=== PATIENT | male | born 1990 | race American Indian/Alaskan Native ===

== ENCOUNTER 2018-11-07 05:37 | Emergency (ER) | payer SELFPAY ==
[2018-11-07] MEDS ORDERED: ZOFRAN ONE (05:55)
[2018-11-07] MEDS ORDERED: MORPHINE ONE (05:55)
[2018-11-07] MEDS ORDERED: TORADOL ONE (05:55)
[2018-11-07] MEDS ORDERED: MORPHINE IV ONE (06:00)
[2018-11-07] MEDS ORDERED: TORADOL IV ONE (06:00)
[2018-11-07] MEDS ORDERED: ZOFRAN IV ONE (06:00)
[2018-11-07] MEDS ORDERED: SOLU-Medrol IV ONE (06:50)
[2018-11-07] MEDS ORDERED: VALIUM IV ONE (06:51)
--- NOTE | 2018-11-07 06:56 | Emergency Department Report ---
ED General Adult HPI - General Chief complaint: Abdominal Pain Stated complaint: BACK PAIN Time Seen by Provider: 11/07/18 06:31 Source: EMS Mode of arrival: Stretcher Limitations: No Limitations - History of Present Illness Initial comments: Patient presents to the emergency department with a chief complaint of left- sided back pain that started at approximately 2:45 AM. 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 Patient states the pain feels like a pulling sensation and at times he gets a shooting pain into his stomach but it goes away. Patient states any type of movement triggers a catch in his back. Patient denies any true radiation of his back pain. -: Sudden Location: back Severity scale (0 -10): 10 Quality: other (spasm) Consistency: constant Improves with: rest Worsens with: movement Associated Symptoms: denies other symptoms Treatments Prior to Arrival: none - Related Data Previous Rx's Medication Instructions Recorded Last Taken Type Cyclobenzaprine HCl [Flexeril 5 MG 5 mg PO BID PRN #10 tab 11/07/18 Unknown Rx TAB] Ketorolac [Toradol] 10 mg PO Q6H PRN #12 tablet 11/07/18 Unknown Rx Allergies Allergy/AdvReac Type Severity Reaction Status Date / Time No Known Allergies Allergy Unverified 11/07/18 05:57 ED Review of Systems ROS: Stated complaint: BACK PAIN Other details as noted in HPI Comment: All other systems reviewed and negative Constitutional: denies: chills, fever Eyes: denies: eye pain, eye discharge, vision change ENT: denies: ear pain, throat pain Respiratory: denies: cough, shortness of breath, wheezing Cardiovascular: denies: chest pain, palpitations Endocrine: no symptoms reported Gastrointestinal: denies: abdominal pain, nausea, diarrhea Genitourinary: denies: urgency, dysuria Musculoskeletal: back pain. denies: joint swelling, arthralgia Skin: denies: rash, lesions Neurological: denies: headache, weakness, paresthesias Psychiatric: denies: anxiety, depression Hematological/Lymphatic: denies: easy bleeding, easy bruising ED Past Medical Hx - Past Medical History Previous Medical History?: No - Surgical History Past Surgical History?: No - Social History Smoking Status: Current Every Day Smoker Substance Use Type: None - Medications Home Medications: Home Medications Medication Instructions Recorded Confirmed Last Taken Type Cyclobenzaprine HCl [Flexeril 5 MG 5 mg PO BID PRN #10 tab 11/07/18 Unknown Rx TAB] Ketorolac [Toradol] 10 mg PO Q6H PRN #12 tablet 11/07/18 Unknown Rx ED Physical Exam - General Limitations: No Limitations General appearance: alert, in no apparent distress - Head Head exam: Present: atraumatic, normocephalic - Eye Eye exam: Present: normal appearance, PERRL, EOMI - ENT ENT exam: Present: mucous membranes moist - Neck Neck exam: Present: normal inspection - Respiratory Respiratory exam: Present: normal lung sounds bilaterally. Absent: respiratory distress, wheezes, rales - Cardiovascular Cardiovascular Exam: Present: regular rate, normal rhythm. Absent: systolic murmur, diastolic murmur, rubs, gallop - GI/Abdominal GI/Abdominal exam: Present: soft, normal bowel sounds - Rectal Rectal exam: Present: deferred - Extremities Exam Extremities exam: Present: other (patient has tenderness to palpation in the parathoracic and paralumbar region on the exam specifically on the left side with spasms present) - Back Exam Back exam: Present: normal inspection - Neurological Exam Neurological exam: Present: alert, oriented X3 - Psychiatric Psychiatric exam: Present: normal affect, normal mood - Skin Skin exam: Present: warm, dry, intact, normal color. Absent: rash ED Course Vital Signs 11/07/18 11/07/18 11/07/18 05:48 05:51 06:00 Temperature 98.7 F Pulse Rate 81 75 57 L Respiratory 16 22 15 Rate Blood Pressure 119/63 Blood Pressure 119/63 [Left] O2 Sat by Pulse 98 98 100 Oximetry 11/07/18 11/07/18 11/07/18 06:02 06:16 06:30 Temperature Pulse Rate 52 L 52 L Respiratory 18 16 14 Rate Blood Pressure 120/76 122/72 Blood Pressure [Left] O2 Sat by Pulse 100 100 Oximetry 11/07/18 11/07/18 11/07/18 06:45 07:00 07:15 Temperature Pulse Rate 56 L 55 L 54 L Respiratory 11 L 16 23 Rate Blood Pressure 128/75 128/75 123/75 Blood Pressure [Left] O2 Sat by Pulse 100 100 100 Oximetry 11/07/18 11/07/1811/07/19 07:30 07:45 08:00 Temperature Pulse Rate 54 L 61 62 Respiratory 17 14 13 Rate Blood Pressure 123/75 120/81 116/69 Blood Pressure [Left] O2 Sat by Pulse 100 98 96 Oximetry 11/07/18 11/07/18 11/07/18 08:15 08:31 08:45 Temperature Pulse Rate 52 L 54 L 52 L Respiratory 11 L 12 15 Rate Blood Pressure 112/60 110/66 122/71 Blood Pressure [Left] O2 Sat by Pulse 100 98 100 Oximetry ED Medical Decision Making - Lab Data Result diagrams: 11/07/18 06:08 11/07/18 06:08 Lab Results 11/07/18 11/07/18 Range/Units 06:08 06:08 WBC 10.2 (4.5-11.0) K/mm3 RBC 2.88 L (3.65-5.03) M/mm3 Hgb 10.2 L (11.8-15.2) gm/dl Hct 29.0 L (35.5-45.6) % MCV 101 H (84-94) fl MCH 36 H (28-32) pg MCHC 35 H (32-34) % RDW 15.8 H (13.2-15.2) % Plt Count 307 (140-440) K/mm3 Lymph % (Auto) Manager Of Compensation [place] % (Auto) Manager Of Compensation Eos % (Auto) Manager Of Compensation Baso % (Auto) Manager Of Compensation Lymph # Manager Of Compensation [place] # Manager Of Compensation Eos # Manager Of Compensation Baso # Manager Of Compensation Add Manual Diff Complete Total Counted 100 Seg Neutrophils % Manager Of Compensation Seg Neuts % (Manual) 59.0 (40.0-70.0) % Band Neutrophils % 4.0 % Lymphocytes % (Manual) 20.0 (13.4-35.0) % Reactive Lymphs % (Man) 1.0 % Monocytes % (Manual) 10.0 H (0.0-7.3) % Eosinophils % (Manual) 0 (0.0-4.3) % Basophils % (Manual) 1.0 (0.0-1.8) % Metamyelocytes % 1.0 % Myelocytes % 4.0 % Promyelocytes % 0 % Blast Cells % 0 % Nucleated RBC % 4.0 H (0.0-0.9) % Seg Neutrophils # Manager Of Compensation Seg Neutrophils # Man 0.0 L (1.8-7.7) K/mm3 Band Neutrophils # 0.0 K/mm3 Lymphocytes # (Manual) 0.0 L (1.2-5.4) K/mm3 Abs React Lymphs (Man) 0.0 K/mm3 Monocytes # (Manual) 0.0 (0.0-0.8) K/mm3 Eosinophils # (Manual) 0.0 (0.0-0.4) K/mm3 Basophils # (Manual) 0.0 (0.0-0.1) K/mm3 Metamyelocytes # 0.0 K/mm3 Myelocytes # 0.0 K/mm3 Promyelocytes # 0.0 K/mm3 Blast Cells # 0.0 K/mm3 WBC Morphology Not Reportable Hypersegmented Neuts Not Reportable Hyposegmented Neuts Not Reportable Hypogranular Neuts Not Reportable Smudge Cells Not Reportable Toxic Granulation Not Reportable Toxic Vacuolation Not Reportable Dohle Bodies Not Reportable Pelger-Huet Anomaly Not Reportable Lelo Rods Not Reportable Platelet Estimate Consistent w auto Clumped Platelets Not Reportable Plt Clumps, EDTA Not Reportable Large Platelets Not Reportable Giant Platelets Not Reportable Platelet Satelliting Not Reportable Plt Morphology Comment Not Reportable RBC Morphology Not Reportable Dimorphic RBCs Not Reportable Polychromasia Few Hypochromasia Not Reportable Poikilocytosis Not Reportable Anisocytosis 1+ Microcytosis Not Reportable Macrocytosis 1+ Spherocytes Not Reportable Pappenheimer Bodies Not Reportable Sickle Cells Not Reportable Target Cells 2+ Tear Drop Cells Not Reportable Ovalocytes Not Reportable Helmet Cells Not Reportable Loco-[place] Bodies Not Reportable [place] Rings Not Reportable [place] Cells Not Reportable Bite Cells Not Reportable Crenated Cell Not Reportable Elliptocytes Not Reportable Acanthocytes (Spur) Not Reportable Rouleaux Not Reportable Hemoglobin C Crystals Not Reportable Schistocytes Not Reportable Malaria parasites Not Reportable Jass Bodies Not Reportable Hem Pathologist Commnt No Sodium 144 (137-145) mmol/L Potassium 3.6 (3.6-5.0) mmol/L Chloride 104.7 (98-107) mmol/L Carbon Dioxide 23 (22-30) mmol/L Anion Gap 20 mmol/L BUN 14 (9-20) mg/dL Creatinine 0.8 (0.8-1.5) mg/dL Estimated GFR > 60 ml/min BUN/Creatinine Ratio 18 % Glucose 96 (75-100) mg/dL Calcium 9.7 (8.4-10.2) mg/dL Total Bilirubin 1.10 (0.1-1.2) mg/dL AST 31 (5-40) units/L ALT 10 (7-56) units/L Alkaline Phosphatase 99 (35-129) units/L Total Protein 7.8 (6.3-8.2) g/dL Albumin 4.7 (3.9-5) g/dL Albumin/Globulin Ratio 1.5 % - Radiology Data Radiology results: report reviewed - Medical Decision Making After treatment of the patient's pain initially he didn't complains of the pain moving into his left flank and into his groin. The lung with radiation of pain and complains of nausea that has become severe. Thus a CT of abdomen and pelvis was ordered CT does not show a nephrolithiasis Results discussed with patient Critical care attestation.: If time is entered above; I have spent that time in minutes in the direct care of this critically ill patient, excluding procedure time. ED Disposition Clinical Impression: Back pain, Flank pain Disposition: DC- TO HOME OR SELFCARE Is pt being admited?: No Does the pt Need Aspirin: No Condition: Stable Instructions: Flank Pain (ED), Acute Low Back Pain (ED), Low Back Strain (ED) Additional Instructions: return if worse Referrals: PRIMARY CARE, [Primary Care Provider] - 3-5 Days [facility] [Provider Group] - 3-5 Days [facility] [Provider Group] - 3-5 Days Time of Disposition: 09:24
[2018-11-07 07:38] LABS: Hemoglobin 10.2 gm/dl (11.8-15.2); Mean Corpuscular HGB Conc 35 % (32-34); Mean Corpuscular Volume 101 fl (84-94); Platelet Count 307 K/mm3 (140-440); Red Blood Count 2.88 M/mm3 (3.65-5.03); Red Cell Distribution Width 15.8 % (13.2-15.2)
[2018-11-07 07:50] LABS: Alanine Aminotransferase 10 units/L (7-56); Albumin 4.7 g/dL (3.9-5); BUN/Creatinine Ratio 18; Blood Urea Nitrogen 14 mg/dL (9-20); Calcium 9.7 mg/dL (8.4-10.2); Hemolysis Index 23
[2018-11-07 09:08] LABS: Anisocytosis 1+; Eosinophils % (Manual) 0 % (0.0-4.3); Macrocytosis 1+; Platelet Estimate Consistent w Auto; Target Cells 2+; Total Cells Counted 100
[2018-11-07] MEDS ORDERED: NORCO 10/325 PO ONE (09:14)
--- NOTE | 2018-11-07 09:16 | Cat Scan Report ---
PROCEDURE: CT ABDOMEN PELVIS WO CON TECHNIQUE: Noncontrast CT of the abdomen and pelvis was performed. No IV or oral contrast administere d. Axial images and coronal and sagittal reformatted images were obtained. HISTORY: flank pain COMPARISON: None FINDINGS: There is some minimal dependent atelectasis at the right lung base. There is trace right pleural flui d. There is no nephrolithiasis, hydronephrosis or other evidence for acute obstructive uropathy. Within the limitations of a noncontrast exam, the visualized liver, spleen, pancreas, adrenal glands and kidneys demonstrate no significant abnormality. The stomach is distended with food material. There is no abdominal aortic aneurysm. There is no evidence for intestinal obstruction. The appendix is not visualized. There is no free intraperitoneal air. There is no abnormal fluid collection seen. Bladder is unremarkable. There is no abnormal pelvic fluid collection or mass seen. IMPRESSION: Stomach is distended with food. There is no nephrolithiasis, hydronephrosis or other evidence for acute obstructive uropathy. Minimal right basilar atelectasis and trace pleural fluid. This document is electronically signed by Elisabet Negron MD., November 07 2018 10:14:17 AM ET
[2018-11-07 09:37] LABS: Bilirubin,Urine NEG (Negative); Blood,Urine NEG (Negative); Color,Urine Yellow (Yellow); Protein,Urine <15 mg/dL mg/dL (Negative); Urobilinogen,Urine < 2.0 mg/dL (<2.0)
[2018-11-07 10:37] VITALS: BP 121/69
== END 2018-11-07 09:39 | disposition home or self-care (01) ==
LOC: ED 05:37
DX: M54.89 Other dorsalgia (principal); R10.9 Unspecified abdominal pain; F17.200 Nicotine dependence, unspecified, uncomplicated
CPT/HCPCS: 36415; 74176; 80053; 81001; 85007; 85025; 96374; 96375; 99284; J1885; J2270; J2405; J2930; J3360